=== PATIENT | female | born 1960 | race Caucasian/White ===

== ENCOUNTER 2019-06-23 15:53 | Inpatient (IN) | payer OTHER ==
[2019-06-23] MEDS ORDERED: SODIUM CHLORIDE 0.9% 500 ML 500 ML IV STA (16:21)
[2019-06-23] MEDS ORDERED: MECLIZINE 12.5 MG TAB PO STA (16:21)
[2019-06-23 16:39] LABS: Basophils % (A) 1 %; Eosinophils # (A) 0.1 k/uL (0-0.7); Eosinophils % (A) 2 %; HCT 45.3 % (34.0-46.0); HGB 15.4 gm/dL (11.4-16.0); Lymphocytes # (A) 1.2 k/uL (1.0-4.8); Lymphocytes % (A) 20 %; MCH 33.4 pg (25.0-35.0); MCHC 34.1 g/dL (31.0-37.0); MCV 98.2 fL (80.0-100.0); Mean Platelet Volume 7.4; Monocytes # (A) 0.4 k/uL (0-1.0); Monocytes % (A) 6 %; Neutrophils # (A) 4.3 k/uL (1.3-7.7); Neutrophils % (A) 70 %; Platelet Count 220 k/uL (150-450); RBC 4.61 m/uL (3.80-5.40); RDW 13.1 % (11.5-15.5); WBC 6.1 k/uL (3.8-10.6)
[2019-06-23 16:48] LABS: INR 0.9 (<1.2); Prothrombin Time 9.9 sec (9.0-12.0)
[2019-06-23 16:54] LABS: Albumin 4.9 g/dL (3.5-5.0); Calcium 10.3 mg/dL (8.4-10.2); Potassium 4.1 mmol/L (3.5-5.1); Total Bilirubin 0.5 mg/dL (0.2-1.3); Total Protein 8.2 g/dL (6.3-8.2)
[2019-06-23 17:06] LABS: Appearance,Urine Clear (Clear); Bilirubin,Urine Negative (Negative); Blood,Urine Negative (Negative); Color,Urine Light Yellow; Glucose,Urine (UA) Negative (Negative); Ketones,Urine Negative (Negative); Leukocyte Esterase,Urine Negative (Negative); Nitrite,Urine Negative (Negative); Protein,Urine Negative (Negative); Specific Gravity,Urine 1.002 (1.001-1.035); Urobilinogen,Urine <2.0 mg/dL (<2.0)
--- NOTE | 2019-06-23 17:59 | XR ---
EXAMINATION TYPE: XR chest 2V DATE OF EXAM: 06/23/2019 COMPARISON: NONE HISTORY: Chest heaviness and dizziness TECHNIQUE: Frontal and lateral views of the chest are obtained. FINDINGS: There is no focal air space opacity, pleural effusion, or pneumothorax seen. The cardiac silhouette size is mildly enlarged. The osseous structures are intact. IMPRESSION: Mildly enlarged cardiomediastinal silhouette otherwise no acute cardiopulmonary process.
[2019-06-23] MEDS ORDERED: TEMAZEPAM 15 MG CAP PO PRN (18:13)
[2019-06-23] MEDS ORDERED: NALOXONE 0.4 MG/ML 1 ML VIAL IV PRN (18:13)
[2019-06-23] MEDS ORDERED: MORPHINE SULFATE 4 MG/ML SYRINGE IV PRN (18:13)
[2019-06-23] MEDS ORDERED: traMADol 50 MG TAB PO PRN (18:13)
[2019-06-23] MEDS ORDERED: ONDANSETRON 4 MG/2 ML VIAL IVP PRN (18:13)
[2019-06-23] MEDS ORDERED: DOCUSATE 100 MG CAP PO PRN (18:13)
--- NOTE | 2019-06-23 18:13 | ED ---
General Adult HPI - General Chief complaint: Dizziness Stated complaint: Dizziness, Falling Time Seen by Provider: 06/23/19 16:13 Source: patient Mode of arrival: wheelchair Limitations: no limitations - History of Present Illness Initial comments: Patient complains of chest pain, lightheadedness, weakness. Nothing makes her symptoms better. Her symptoms are worse with exertion or walking around. It also makes her feel more short of breath. She has also had some vertigo. She had no loss of conscious. She has no diaphoresis. She has no focal weakness. Her chest pain and pressure have been getting worse off and on. She denies any palpitations. She has no pain or swelling in the arms or legs. - Related Data Allergies Allergy/AdvReac Type Severity Reaction Status Date / Time No Known Allergies Allergy Verified 06/23/19 15:56 Review of Systems ROS Statement: Those systems with pertinent positive or pertinent negative responses have been documented in the HPI. ROS Other: All systems not noted in ROS Statement are negative. Past Medical History Past Medical History: No Reported History Additional Past Medical History / Comment(s): carotid sclerosis, "mitral valve needs replacment supposed to be done 06/27 History of Any Multi-Drug Resistant Organisms: None Reported Past Surgical History: Tubal Ligation Past Psychological History: Anxiety, Depression Smoking Status: Current every day smoker Past Alcohol Use History: Occasional Past Drug Use History: None Reported General Exam Limitations: no limitations General appearance: alert, in no apparent distress Head exam: Present: atraumatic, normocephalic, normal inspection Eye exam: Present: normal appearance, PERRL, EOMI. Absent: scleral icterus, conjunctival injection, periorbital swelling ENT exam: Present: normal exam, mucous membranes moist Neck exam: Present: normal inspection. Absent: tenderness, meningismus, lymphadenopathy Respiratory exam: Present: normal lung sounds bilaterally. Absent: respiratory distress, wheezes, rales, rhonchi, stridor Cardiovascular Exam: Present: regular rate, normal rhythm, normal heart sounds. Absent: systolic murmur, diastolic murmur, rubs, gallop, clicks GI/Abdominal exam: Present: soft, normal bowel sounds. Absent: distended, tenderness, guarding, rebound, rigid Extremities exam: Present: normal inspection, full ROM, normal capillary refill. Absent: tenderness, pedal edema, joint swelling, calf tenderness Back exam: Present: normal inspection Neurological exam: Present: alert, oriented X3, CN II-XII intact Psychiatric exam: Present: normal affect, normal mood Skin exam: Present: warm, dry, intact, normal color. Absent: rash Course Vital Signs 06/23/19 06/23/19 06/23/19 15:57 16:26 16:30 Temperature 97.9 F Pulse Rate 99 90 89 Respiratory 18 20 18 Rate Blood Pressure 128/78 137/85 O2 Sat by Pulse 97 97 Oximetry 06/23/19 16:52 Temperature Pulse Rate Respiratory 20 Rate Blood Pressure O2 Sat by Pulse Oximetry EKG Findings - EKG Comments: EKG Findings:: Twelve-lead EKG shows ventricular rate 90 bpm, normal AL interval and QRS complex is, no ST elevation or depression, interpreted by me as normal sinus rhythm. Medical Decision Making - Medical Decision Making Patient complains of chest pain. EKG is normal. First troponin is negative. I will consult her american sign language interpreter. Patient will be admitted to the hospital. - Lab Data Result diagrams: 06/23/19 16:20 06/23/19 16:20 Lab Results 06/23/19 06/23/19 06/23/19 Range/Units 16:20 16:20 16:20 WBC 6.1 (3.8-10.6) k/uL RBC 4.61 (3.80-5.40) m/uL Hgb 15.4 (11.4-16.0) gm/dL Hct 45.3 (34.0-46.0) % MCV 98.2 (80.0-100.0) fL MCH 33.4 (25.0-35.0) pg MCHC 34.1 (31.0-37.0) g/dL RDW 13.1 (11.5-15.5) % Plt Count 220 (150-450) k/uL Neutrophils % 70 % Lymphocytes % 20 % Monocytes % 6 % Eosinophils % 2 % Basophils % 1 % Neutrophils # 4.3 (1.3-7.7) k/uL Lymphocytes # 1.2 (1.0-4.8) k/uL Monocytes # 0.4 (0-1.0) k/uL Eosinophils # 0.1 (0-0.7) k/uL Basophils # 0.0 (0-0.2) k/uL PT 9.9 (9.0-12.0) sec INR 0.9 (<1.2) Sodium (137-145) mmol/L Potassium (3.5-5.1) mmol/L Chloride (98-107) mmol/L Carbon Dioxide (22-30) mmol/L Anion Gap mmol/L BUN (7-17) mg/dL Creatinine (0.52-1.04) mg/dL Est GFR (CKD-EPI)AfAm (>60 ml/min/1.73 sqM) Est GFR (CKD-EPI)NonAf (>60 ml/min/1.73 sqM) Glucose (74-99) mg/dL Calcium (8.4-10.2) mg/dL Total Bilirubin (0.2-1.3) mg/dL AST (14-36) U/L ALT (9-52) U/L Alkaline Phosphatase (38-126) U/L Troponin I 0.018 (0.000-0.034) ng/mL Total Protein (6.3-8.2) g/dL Albumin (3.5-5.0) g/dL Urine Color Urine Appearance (Clear) Urine pH (5.0-8.0) Ur Specific [place] (1.001-1.035) Urine Protein (Negative) Urine Glucose (UA) (Negative) Urine Ketones (Negative) Urine Blood (Negative) Urine Nitrite (Negative) Urine Bilirubin (Negative) Urine Urobilinogen (<2.0) mg/dL Ur Leukocyte Esterase (Negative) 06/23/19 06/23/19 Range/Units 16:20 17:00 WBC (3.8-10.6) k/uL RBC (3.80-5.40) m/uL Hgb (11.4-16.0) gm/dL Hct (34.0-46.0) % MCV (80.0-100.0) fL MCH (25.0-35.0) pg MCHC (31.0-37.0) g/dL RDW (11.5-15.5) % Plt Count (150-450) k/uL Neutrophils % % Lymphocytes % % Monocytes % % Eosinophils % % Basophils % % Neutrophils # (1.3-7.7) k/uL Lymphocytes # (1.0-4.8) k/uL Monocytes # (0-1.0) k/uL Eosinophils # (0-0.7) k/uL Basophils # (0-0.2) k/uL PT (9.0-12.0) sec INR (<1.2) Sodium 139 (137-145) mmol/L Potassium 4.1 (3.5-5.1) mmol/L Chloride 106 (98-107) mmol/L Carbon Dioxide 22 (22-30) mmol/L Anion Gap 11 mmol/L BUN 8 (7-17) mg/dL Creatinine 0.87 (0.52-1.04) mg/dL Est GFR (CKD-EPI)AfAm 86 (>60 ml/min/1.73 sqM) Est GFR (CKD-EPI)NonAf 74 (>60 ml/min/1.73 sqM) Glucose 117 H (74-99) mg/dL Calcium 10.3 H (8.4-10.2) mg/dL Total Bilirubin 0.5 (0.2-1.3) mg/dL AST 24 (14-36) U/L ALT 9 (9-52) U/L Alkaline Phosphatase 144 H (38-126) U/L Troponin I (0.000-0.034) ng/mL Total Protein 8.2 (6.3-8.2) g/dL Albumin 4.9 (3.5-5.0) g/dL Urine Color Light Yellow Urine Appearance Clear (Clear) Urine pH 5.0 (5.0-8.0) Ur Specific [place] 1.002 (1.001-1.035) Urine Protein Negative (Negative) Urine Glucose (UA) Negative (Negative) Urine Ketones Negative (Negative) Urine Blood Negative (Negative) Urine Nitrite Negative (Negative) Urine Bilirubin Negative (Negative) Urine Urobilinogen <2.0 (<2.0) mg/dL Ur Leukocyte Esterase Negative (Negative) Disposition Clinical Impression: Chest pain Disposition: ADMITTED IP TO THIS HOSP Condition: Fair Is patient prescribed a controlled substance at d/c from ED?: No Referrals: Patience Mejia FNPBC [Primary Care Provider] - 1-2 days
[2019-06-23 19:12] VITALS: RESP 18
[2019-06-23] MEDS ORDERED: BISACODYL 5 MG TABLET.DR PO PRN (20:54)
[2019-06-23] MEDS ORDERED: DIAZEPAM 5 MG TAB PO PRN (20:54)
[2019-06-23] MEDS: lamoTRIgine 100 MG TAB PO SCH (21:06)
[2019-06-23] MEDS: traZODone HCL 100 MG TAB PO SCH (21:06)
[2019-06-23] MEDS: QUEtiapine 400 MG TAB PO SCH (21:07)
[2019-06-23] MEDS: busPIRone HCl 5 MG TAB PO SCH (21:07)
[2019-06-24] MEDS ORDERED: HEPARIN SODIUM,PORCINE 5,000 UNIT/ML 1 ML VIAL IV PRN (00:11)
[2019-06-24] MEDS ORDERED: HEPARIN SODIUM,PORCINE 5,000 UNIT/ML 1 ML VIAL IV ONE (00:11)
[2019-06-24] MEDS ORDERED: ASPIRIN 81 MG PO STA (00:12)
[2019-06-24] MEDS ORDERED: CLOPIDOGREL 75 MG TAB PO STA (00:13)
[2019-06-24] MEDS ORDERED: HEPARIN SOD,PORK IN 0.45% NACL 25,000 UNIT in 0.45% NACL 1 250ML.BAG IV SCH (00:15)
--- NOTE | 2019-06-24 00:17 | P.HPIM ---
History of Present Illness H&P Date: 06/23/19 The patient is a 59 yo F with a PMH of mitral valve regurgitation and tobacco abuse who presented to the ED w/ c/o worsening chest discomfort. The patient notes that she has been following with Dr Rajput in the clinic for this discomfort and that she was scheduled to undergo a cardiac cath later this week. She notes that her pain however worsened, is exertional, intermittent, substernal, pressure-like, with associated SOB, nausea, and palpitations. The patient notes that her exercise tolerance also continued to decline and now she gets winded with only a few steps. She reports no pain at rest. She denied cough, fever, chill, dysuria, abdominal pain, dizziness, LE edema, or LE pain. She underwent an extensive evaluation in the ED w/ EKg showing NSR @ [address]-T wave changes noted. CXR revealed mild cardiomegaly with UA unremarkable. Laboratory evaluation revealed Troponin of 0.018, WBC 6.1, Hgb 15.4, plt 220, Na 139, K 4.1, BUN 8, Cr 0.87, and glucose 117. The patient is being admitted to the medicine service for unstable angina. Past Medical History Past Medical History: No Reported History Additional Past Medical History / Comment(s): carotid sclerosis, "mitral valve needs replacment and 2 possible cardiac stents supposed to be done 06/27. 5 weeks ago she broke 3 ribs. History of Any Multi-Drug Resistant Organisms: None Reported Past Surgical History: Tubal Ligation Past Anesthesia/Blood Transfusion Reactions: No Reported Reaction Past Psychological History: Anxiety, Depression, PTSD, Schizoaffective Disorder, Schizophrenia Smoking Status: Current every day smoker Past Alcohol Use History: Occasional Past Drug Use History: None Reported Medications and Allergies Home Medications Medication Instructions Recorded Confirmed Type Bisacodyl 5 mg PO DAILY PRN 06/23/19 06/23/19 History Citalopram Hydrobromide [CeleXA] 40 mg PO DAILY 06/23/19 06/23/19 History Diazepam [Valium] 10 mg PO TID PRN 06/23/19 06/23/19 History QUEtiapine [SEROquel] 400 mg PO HS 06/23/19 06/23/19 History buPROPion HCL [Wellbutrin XL] 300 mg PO DAILY 06/23/19 06/23/19 History busPIRone HCL 15 mg PO QID 06/23/19 06/23/19 History lamoTRIgine [LaMICtal] 100 mg PO BID 06/23/19 06/23/19 History traZODone HCL 200 mg PO HS 06/23/19 06/23/19 History Allergies Allergy/AdvReac Type Severity Reaction Status Date / Time No Known Allergies Allergy Verified 06/23/19 18:21 Physical Exam Vitals: Vital Signs Temp Pulse Pulse Resp BP BP Pulse Ox 06/23/19 20:00 18 06/23/19 18:50 97.8 F 81 18 152/96 98 06/23/19 18:30 80 16 136/88 97 06/23/19 18:03 20 06/23/19 18:00 81 18 134/92 97 06/23/19 17:30 82 16 139/87 97 06/23/19 17:03 20 06/23/19 17:00 92 20 132/87 98 06/23/19 16:52 20 06/23/19 16:30 89 18 137/85 97 06/23/19 16:26 90 20 06/23/19 15:57 97.9 F 99 18 128/78 97 Intake and Output 06/23/19 06/23/19 06/23/19 06:59 14:59 22:59 Other: Weight 65.771 kg General: non toxic, no distress, appears at stated age, normal weight Derm: no unusual rashes/lesions no unusual ecchymoses, warm, dry Head: atraumatic, normocephalic, symmetric Eyes: EOMI, no lid lag, anicteric sclera, pupils equal round reactive to light ENT: Nose and ears atraumatic, no thrush, no pharyngeal erythema Neck: No thyromegaly, no cervical lymphadenopathy, trachea midline, supple Mouth: no lip lesion, mucus membranes moist Cardiovascular: S1S2 reg, no murmur, positive posterior tibial pulse bilateral, no edema, capillary refill less than 2 seconds, no chest wall tenderness Lungs: CTA bilateral, no rhonchi, no rales , no accessory muscle use Abdominal: soft, nontender to palpation, no guarding, no appreciable organomegaly, normal bowel sounds Ext: no gross muscle atrophy, muscle strength 5 out of 5 in all 4 extremities grossly, no contractures, Neuro: CN II-XI grossly intact, light touch intact all 4 extremities, finger to nose within normal limits, Psych: Alert, oriented, appropriate affect Results CBC & Chem 7: 06/23/19 16:20 06/23/19 16:20 Labs: Abnormal Lab Results - Last 24 Hours (Table) 06/23/19 Range/Units 16:20 Glucose 117 H (74-99) mg/dL Calcium 10.3 H (8.4-10.2) mg/dL Alkaline Phosphatase 144 H (38-126) U/L Thrombosis Risk Factor Assmnt - Choose All That Apply Any of the Below Risk Factors Present?: Yes Each Factor Represents 1 point: Age 41-60 years Other Risk Factors: No Other congenital or acquired thrombophilia - If yes, enter type in comment: No Thrombosis Risk Factor Assessment Total Risk Factor Score: 1 Thrombosis Risk Factor Assessment Level: Low Risk Assessment and Plan Plan: Unstable angina -Will administer Aspirin and plavix -Anticoagulation with Heparin infusion -Cardiac monitoring -Trend troponin -Cardiology consult Elevated alkaline phosphatase -Monitor for now Depression, anxiety, schizoaffective disorder -C/w home meds DVT prophylaxis -Heparin infusion The patient is admitted with an anticipated less than 2 midnight stay for evaluation of unstable angina CODE STATUS: Full Code Discussed with: Patient Anticipated discharge date: 1-[address]: Home A total of 35 minutes was spent on the care of this complex patient more than 50% of the time was spent in counseling and care coordination.
[2019-06-24 00:43] LABS: Basophils % (A) 1 %; Eosinophils # (A) 0.1 k/uL (0-0.7); Eosinophils % (A) 2 %; HCT 41.7 % (34.0-46.0); HGB 13.9 gm/dL (11.4-16.0); Lymphocytes # (A) 0.8 k/uL (1.0-4.8); Lymphocytes % (A) 20 %; MCH 32.9 pg (25.0-35.0); MCHC 33.2 g/dL (31.0-37.0); Mean Platelet Volume 6.5; Monocytes # (A) 0.3 k/uL (0-1.0); Monocytes % (A) 6 %; Neutrophils # (A) 2.9 k/uL (1.3-7.7); Neutrophils % (A) 70 %; Platelet Count 213 k/uL (150-450); RBC 4.22 m/uL (3.80-5.40); RDW 13.3 % (11.5-15.5); WBC 4.1 k/uL (3.8-10.6)
[2019-06-24 00:50] LABS: INR 0.9 (<1.2); Partial Thromboplastin Time 24.6 sec (22.0-30.0); Prothrombin Time 9.7 sec (9.0-12.0)
--- NOTE | 2019-06-24 09:44 | P.CRDCN ---
History of Present Illness History of present illness: HISTORY OF PRESENTING ILLNESS This is a pleasant 59-year-old female past medical history significant for chronic nicotine dependence, psychiatric illness and valvular heart disease. She follows in the office with Dr. Rajput. She established with him May 2019 in [place] and is scheduled for [facility] and left heart catheterization 06/27. She underwent outpatient echocardiogram April 2019 revealing preserved LV systolic function with ejection fraction 55-60%, thickened mitral valve leaflets with moderate to severe mitral regurgitation, moderate to severe tricuspid regurgitation. We have been asked to see her in consultation for chest pain. She states for the previous 1 month intermittently she has been experiencing dizziness with activity described as the room is spinning. She has associated ataxia and frequently trips and runs into things in her home. Over the last few days she has had more frequent episodes and has also noticed a pressure in the mid-sternal region described as a brick pushing on her chest. She denies radiation to the arm, back, neck or jaw. She has some mild shortness of breath with activity but denies significant dyspnea. She is currently chest pain free and states the antivert given yesterday has resolved her dizziness. DIAGNOSTICS EKG reveals sinus mechanism with no acute ST changes. Chest xray negative for an acute process. Laboratory reviewed, CBC unremarkable, sodium 139, potassium 4.1, creatinine 0.87, cardiac enzymes negative x3. She takes no daily cardiac medications. REVIEW OF SYSTEMS At the time of my exam: CONSTITUTIONAL: Denies fever or chills. CARDIOVASCULAR: Denies chest pain, shortness of breath, orthopnea, PND or palpitations. RESPIRATORY: Denies cough. GASTROINTESTINAL: Denies abdominal pain, diarrhea, constipation, nausea or vomiting. MUSCULOSKELETAL: Denies myalgias. NEUROLOGIC: Denies numbness, tingling or weakness. ENDOCRINE: Denies fatigue, weight change, polydipsia or polyurina. GENITOURINARY: Denies burning, hematuria or urgency with micturation. HEMATOLOGIC: Denies history of anemia or bleeding. PHYSICAL EXAMINATION Blood pressure 126/79 heart rate 94 afebrile and maintaining oxygen saturation on room air. CONSTITUTIONAL: No apparent distress. HEENT: Head is normocephalic. Pupils are equal, round. Sclerae anicteric. Mucous membranes of the mouth are moist. No JVD. No carotid bruit. CHEST EXAMINATION: Course scattered rhonchi, no wheezes or rales.. No chest wall tenderness is noted on palpation or with deep breathing. HEART EXAMINATION: Regular rate and rhythm. S1, S2 heard. Systolic ejection murmur at the left sternal border, no gallops or rub. ABDOMEN: Soft, nontender. Positive bowel sounds. EXTREMITIES: 2+ peripheral pulses, no lower extremity edema and no calf tenderness. NEUROLOGIC EXAMINATION: Patient is awake, alert and oriented x3. ASSESSMENT Chest pain, atypical. An acute coronary event has been ruled out. Dizziness, symptoms suggestive of vertigo. Resolved with antivert. Ataxia Valvular heart disease, severe MR and TR. Scheduled out [facility] 06/27/2019 Chronic nicotine dependence PLAN An acute event has been ruled out. Discontinue heparin infusion. Symptoms are atypical to be related to cardiac etiology. Likely related to vertigo. Increase activity and ambulation in the halls. Assess for recurring dizziness or chest pain. Check d-dimer and lipid panel. If asymptomatic with activity she is clear for discharge from a cardiac perspective. PRN antivert to be given for home. Smoking cessation recommended. Thank you kindly for this consultation. Nurse Practitioner note has been reviewed, I agree with a documented findings and plan of care. Patient was seen and examined. Past Medical History Past Medical History: No Reported History Additional Past Medical History / Comment(s): carotid sclerosis, "mitral valve needs replacment and 2 possible cardiac stents supposed to be done 06/27. 5 weeks ago she broke 3 ribs. History of Any Multi-Drug Resistant Organisms: None Reported Past Surgical History: Tubal Ligation Past Anesthesia/Blood Transfusion Reactions: No Reported Reaction Past Psychological History: Anxiety, Depression, PTSD, Schizoaffective Disorder, Schizophrenia Smoking Status: Current every day smoker Past Alcohol Use History: Occasional Past Drug Use History: None Reported Medications and Allergies Home Medications Medication Instructions Recorded Confirmed Type Bisacodyl 5 mg PO DAILY PRN 06/23/19 06/23/19 History Citalopram Hydrobromide [CeleXA] 40 mg PO DAILY 06/23/19 06/23/19 History Diazepam [Valium] 10 mg PO TID PRN 06/23/19 06/23/19 History QUEtiapine [SEROquel] 400 mg PO HS 06/23/19 06/23/19 History buPROPion HCL [Wellbutrin XL] 300 mg PO DAILY 06/23/19 06/23/19 History busPIRone HCL 15 mg PO QID 06/23/19 06/23/19 History lamoTRIgine [LaMICtal] 100 mg PO BID 06/23/19 06/23/19 History traZODone HCL 200 mg PO HS 06/23/19 06/23/19 History Allergies Allergy/AdvReac Type Severity Reaction Status Date / Time No Known Allergies Allergy Verified 06/23/19 18:21 Physical Exam Vitals: Vital Signs Temp Pulse Pulse Resp BP BP BP 06/24/19 07:00 98.1 F 84 18 126/79 06/24/19 04:00 97.8 F 83 18 144/91 06/24/19 03:34 18 06/24/19 00:00 18 06/23/19 23:40 97.8 F 80 18 121/80 06/23/19 20:00 18 06/23/19 18:50 97.8 F 81 18 152/96 06/23/19 18:30 80 16 136/88 06/23/19 18:03 20 06/23/19 18:00 81 18 134/92 06/23/19 17:30 82 16 139/87 06/23/19 17:03 20 06/23/19 17:00 92 20 132/87 06/23/19 16:52 20 06/23/19 16:30 89 18 137/85 06/23/19 16:26 90 20 06/23/19 15:57 97.9 F 99 18 128/78 Pulse Ox 06/24/19 07:00 95 06/24/19 04:00 98 06/24/19 03:34 06/24/19 00:00 06/23/19 23:40 96 06/23/19 20:00 06/23/19 18:50 98 06/23/19 18:30 97 06/23/19 18:03 06/23/19 18:00 97 06/23/19 17:30 97 06/23/19 17:03 06/23/19 17:00 98 06/23/19 16:52 06/23/19 16:30 97 06/23/19 16:26 06/23/19 15:57 97 Intake and Output 06/23/19 06/24/19 06/24/19 22:59 06:59 14:59 Other: # Voids 1 Weight 65.771 kg Results 06/24/19 00:19 06/23/19 16:20 Cardiac Enzymes 06/23/19 06/23/19 06/23/19 Range/Units 16:20 16:20 22:22 AST 24 (14-36) U/L Troponin I 0.018 0.015 (0.000-0.034) ng/mL 06/24/19 Range/Units 04:13 AST (14-36) U/L Troponin I 0.019 (0.000-0.034) ng/mL Coagulation 06/23/19 06/24/19 06/24/19 Range/Units 16:20 00:19 06:45 PT 9.9 9.7 (9.0-12.0) sec APTT 24.6 28.8 (22.0-30.0) sec CBC 06/23/19 06/24/19 Range/Units 16:20 00:19 WBC 6.1 4.1 (3.8-10.6) k/uL RBC 4.61 4.22 (3.80-5.40) m/uL Hgb 15.4 13.9 (11.4-16.0) gm/dL Hct 45.3 41.7 (34.0-46.0) % Plt Count 220 213 (150-450) k/uL Comprehensive Metabolic Panel 06/23/19 Range/Units 16:20 Sodium 139 (137-145) mmol/L Potassium 4.1 (3.5-5.1) mmol/L Chloride 106 (98-107) mmol/L Carbon Dioxide 22 (22-30) mmol/L BUN 8 (7-17) mg/dL Creatinine 0.87 (0.52-1.04) mg/dL Glucose 117 H (74-99) mg/dL Calcium 10.3 H (8.4-10.2) mg/dL AST 24 (14-36) U/L ALT 9 (9-52) U/L Alkaline Phosphatase 144 H (38-126) U/L Total Protein 8.2 (6.3-8.2) g/dL Albumin 4.9 (3.5-5.0) g/dL Current Medications Generic Name Dose Route Start Last Admin Trade Name Freq PRN Reason Stop Dose Admin Bisacodyl 5 mg 06/23/19 20:54 Dulcolax PO DAILY PRN Constipation Bupropion HCl 300 mg 06/24/19 09:00 Wellbutrin Xl PO DAILY CARLY Buspirone HCl 15 mg 06/23/19 22:00 06/23/19 21:07 Buspar PO 15 mg QID CARLY Administration Diazepam 10 mg 06/23/19 20:54 Valium PO TID PRN Anxiety Docusate Sodium 100 mg 06/23/19 18:13 Colace PO BID PRN Constipation Heparin Sodium (Porcine) 0 unit 06/24/19 00:11 Heparin IV PER PROTOCOL PRN Low PTT Protocol Heparin Sodium/Sodium Chloride 250 mls @ 7.893 mls/hr 06/24/19 00:15 06/24/19 00:37 25,000 unit/ Sodium Chloride IV 12 units/kg/hr .Q24H CARLY 7.893 mls/hr Administration Protocol 12 UNITS/KG/HR Lamotrigine 100 mg 06/23/19 21:00 06/23/19 21:06 Lamictal PO 100 mg BID CARLY Administration Morphine Sulfate 4 mg 06/23/19 18:13 Morphine Sulfate (Inj) IV Q4HR PRN Severe Pain Naloxone HCl 0.2 mg 06/23/19 18:13 Narcan IV Q2M PRN Opioid Reversal Quetiapine Fumarate 400 mg 06/23/19 21:00 06/23/19 21:07 Seroquel PO 400 mg HS CARLY Administration Tramadol HCl 50 mg 06/23/19 18:13 06/23/19 20:43 Ultram PO 50 mg Q6H PRN Administration Moderate Pain Trazodone HCl 200 mg 06/23/19 21:00 06/23/19 21:06 Desyrel PO 200 mg HS CARLY Administration Intake and Output 06/23/19 06/24/19 06/24/19 22:59 06:59 14:59 Other: # Voids 1 Weight 65.771 kg 06/24/19 00:19 06/23/19 16:20
[2019-06-24 09:53] LABS: Cholesterol 239 mg/dL (<200); HDL Cholesterol 64 mg/dL (40-60); LDL Cholesterol,Calculated 149 mg/dL (0-99); Triglycerides 131 mg/dL (<150)
[2019-06-24] MEDS ORDERED: MECLIZINE 25 MG TAB PO STA (10:00)
[2019-06-24] MEDS: lamoTRIgine 100 MG TAB PO SCH ×2 (10:07→22:17)
[2019-06-24] MEDS: busPIRone HCl 5 MG TAB PO SCH ×4 (10:08→22:17)
[2019-06-24 11:19] VITALS: BMI 24.9
[2019-06-24] MEDS: buPROPion XL 300 MG TAB.ER.24H PO SCH (12:52)
[2019-06-24] MEDS ORDERED: SODIUM CHLORIDE 0.9% 1,000 ML in EMPTY BAG 1 BAG IV ONE (13:31)
[2019-06-24] MEDS ORDERED: NITROGLYCERIN SL TABS 0.4 MG TAB SUBLINGUAL PRN (13:31)
[2019-06-24] MEDS ORDERED: DIAZEPAM 2 MG TAB PO PRN (14:40)
--- NOTE | 2019-06-24 18:23 | P.PN ---
Subjective Progress Note Date: 06/24/19 (delayed charting see at 1430) Principal diagnosis: chest pain Patient is a 59-year-old female past medical history of mitral valve regurgitation, tobacco abuse, anxiety, and carotid stenosis who presented to the emergency department with complaints of worsening chest pain. She was subsequently admitted for cardiac observation. Troponins remain negative, EKG did not show any signs of acute ischemia. She was seen by cardiology to undergo cardiac catheterization 06/25. She was also complaining of some dizziness. Patient seen and examined at bedside. She is not currently having any chest pain or shortness of breath. She states that she always develops chest pain and shortness of breath when up and ambulating. She also reports an off-balance sensation when up and ambulating. She states as though she has blurry vision and feels faint and like she might pass out. She states the room is not spinning. She does report that she has bumped into things and had several falls. She states that she has no dizziness or room spinning feelings when she is sitting or even when she is moving her head but she does have these whenever she ambulates. She does report that approximately 4 weeks ago her Klonopin was stopped and she was started on Valium. She states her dizziness has been a chronic problem and is not changing. Patient is very lethargic after having received 10 mg of Valium approximately an hour before my assessment. She cannot stay awake during our conversation. We discussed that she is multiple medications which could result in dizziness. It appears this has been long-standing. Objective - Vital Signs Vital signs: Vital Signs Temp 98.0 F 06/24/19 15:34 Pulse 85 06/24/19 16:00 Resp 18 06/24/19 16:00 BP 135/80 06/24/19 15:34 Pulse Ox 96 06/24/19 15:34 Intake & Output 06/23/19 06/24/19 06/24/19 18:59 06:59 18:59 Intake Total 320 Balance 320 Weight 65.771 kg 65.771 kg Intake: Oral 120 Other 200 Other: Voiding Method Toilet # Voids 1 - Exam General: non toxic, no distress, appears at stated age Derm: warm, dry Head: atraumatic, normocephalic, symmetric Eyes: EOMI, no lid lag, anicteric sclera Mouth: no lip lesion, mucus membranes moist Cardiovascular: S1S2 reg, no murmur, positive posterior tibial pulse bilateral, Lungs: CTA bilateral, no rhonchi, no rales , no accessory muscle use Abdominal: soft, nontender to palpation, no guarding, no appreciable organomegaly Ext: no gross muscle atrophy, no edema, no contractures Neuro: CN II-XI grossly intact, no focal neuro deficits Psych: Alert, lethargic has a hard time staying awake, history of a rub multiple times to stay awake. - Labs CBC & Chem 7: 06/24/19 00:19 06/23/19 16:20 Labs: Abnormal Lab Results - Last 24 Hours (Table) 06/24/19 06/24/19 Range/Units 00:19 06:45 Lymphocytes # 0.8 L (1.0-4.8) k/uL Cholesterol 239 H (<200) mg/dL LDL Cholesterol, Calc 149 H (0-99) mg/dL HDL Cholesterol 64 H (40-60) mg/dL Assessment and Plan Assessment: Atypical chest pain -Troponins negative -Aspirin, statin -Plans for cardiac cath in a.m. -Heparin drip -Beta jad Dyslipidemia -Statin Dizziness -Suspect secondary to polypharmacy. Will decrease Valium to 2 mg 3 times a day as patient has been on this for approximately 4 months -Have asked patient to follow up with her psychiatrist. Denies medication regimen -Check head CT -Further outpatient evaluation Schizoaffective disorder -Continue with psychiatric therapy at [facility] and Atarax -Patient is currently taking trazodone, Seroquel, BuSpar, Wellbutrin, and Celexa. Also taking Valium in addition. DVT prophylaxis: heparin gtt Discussed with: patient, nursing Anticipated discharge: in AM Anticipated discharge place: home A total of 35 minutes was spent on the care of this complex patient more than 50% of the time was spent in counseling and care coordination.
--- NOTE | 2019-06-24 19:38 | CT ---
EXAMINATION TYPE: CT brain wo con DATE OF EXAM: 06/24/2019 COMPARISON: None HISTORY: dizziness CT DLP: 1091.4 mGycm Automated exposure control for dose reduction was used. There is mild cerebral atrophy. There is no mass effect nor midline shift. There is no sign of intrac ranial hemorrhage. The calvarium is intact. Skull base is intact. Impression new mild atrophy. No acute intracranial abnormality.
[2019-06-24] MEDS ORDERED: ATORVASTATIN 40 MG TAB PO SCH (21:00)
[2019-06-24] MEDS: traZODone HCL 100 MG TAB PO SCH (22:17)
[2019-06-24] MEDS: QUEtiapine 400 MG TAB PO SCH (22:18)
[2019-06-25] MEDS: busPIRone HCl 5 MG TAB PO SCH ×2 (05:25→12:27)
[2019-06-25] MEDS: lamoTRIgine 100 MG TAB PO SCH (05:25)
[2019-06-25] MEDS ORDERED: ASPIRIN 325 MG TAB PO ONE (06:00)
[2019-06-25 06:47] LABS: Basophils % (A) 1 %; Eosinophils # (A) 0.1 k/uL (0-0.7); Eosinophils % (A) 2 %; HCT 43.9 % (34.0-46.0); HGB 14.4 gm/dL (11.4-16.0); Lymphocytes % (A) 21 %; MCHC 32.8 g/dL (31.0-37.0); MCV 100.5 fL (80.0-100.0); Mean Platelet Volume 7.2; Monocytes # (A) 0.3 k/uL (0-1.0); Monocytes % (A) 6 %; Neutrophils # (A) 3.2 k/uL (1.3-7.7); Neutrophils % (A) 69 %; Platelet Count 211 k/uL (150-450); RBC 4.37 m/uL (3.80-5.40); RDW 13.2 % (11.5-15.5); WBC 4.6 k/uL (3.8-10.6)
[2019-06-25 07:23] LABS: Calcium 9.3 mg/dL (8.4-10.2); Potassium 4.1 mmol/L (3.5-5.1)
--- NOTE | 2019-06-25 07:52 | P.PN ---
Subjective Progress Note Date: 06/25/19 Principal diagnosis: Mitral regurgitation This is a pleasant 59-year-old female patient was transferred from [facility] further evaluation of chest pain and shortness of breath and she was seen as an outpatient weeks ago for further evaluation of mitral regurgitation and she was scheduled as an outpatient to undergo a BRADLY and heart catheterization. She was seen this morning. She continues to have shortness of breath with exertion and sometimes chest discomfort. The plan is to proceed with a BRADLY and heart catheterization on the patient later on today. The blood pressure is slightly elevated. Otherwise a cardiac enzymes are unremarkable. Objective - Vital Signs Vital signs: Vital Signs Temp 97.5 F L 06/25/19 07:05 Pulse 82 06/25/19 07:05 Resp 18 06/25/19 07:05 BP 145/86 06/25/19 07:05 Pulse Ox 97 06/25/19 07:05 Intake & Output 06/24/19 06/25/19 06/25/19 18:59 06:59 18:59 Intake Total 320 Balance 320 Weight 65.771 kg Intake: Oral 120 Other 200 Other: Voiding Method Toilet Toilet - Constitutional General appearance: Present: no acute distress - Respiratory Respiratory: bilateral: CTA - Cardiovascular Rhythm: regular Heart sounds: normal: S1, S2 Abnormal Heart Sounds: Present: systolic murmur - Labs CBC & Chem 7: 06/25/19 06:37 06/25/19 06:37 Labs: Abnormal Lab Results - Last 24 Hours (Table) 06/24/19 06/25/19 06/25/19 Range/Units 06:45 06:37 06:37 MCV 100.5 H (80.0-100.0) fL Chloride 114 H (98-107) mmol/L Cholesterol 239 H (<200) mg/dL LDL Cholesterol, Calc 149 H (0-99) mg/dL HDL Cholesterol 64 H (40-60) mg/dL Assessment and Plan Assessment: Assessment Moderate to severe mitral regurgitation Shortness of breath probably secondary to MR Significant history of smoking Plan Proceed with a BRADLY and cath Follow-up with the patient
[2019-06-25] MEDS: buPROPion XL 300 MG TAB.ER.24H PO SCH (08:27)
[2019-06-25] MEDS ORDERED: LOSARTAN 25 MG TAB PO SCH (09:00)
[2019-06-25] MEDS ORDERED: IV FLUID CONTINUATION 250 ML IV ONE (09:42)
[2019-06-25] MEDS ORDERED: VERAPAMIL 2.5 MG/ML 2 ML AMP ONE (09:47)
[2019-06-25] MEDS ORDERED: LIDOCAINE 1% INJ 10MG/ML (20 ML MDV) ONE (09:47)
[2019-06-25] MEDS ORDERED: HEPARIN SODIUM 1,000 UN/ML (10ML VL) ONE (09:47)
[2019-06-25] MEDS ORDERED: MIDAZOLAM 2 MG/2 ML VIAL IV ONE ×3 (10:00→11:01)
[2019-06-25] MEDS ORDERED: LIDOCAINE 1% INJ 10MG/ML (20 ML MDV) SQ ONE (10:01)
[2019-06-25] MEDS ORDERED: VERAPAMIL SYRINGE (5 MG/10 ML) INTRAARTER ONE (10:02)
[2019-06-25] MEDS ORDERED: HEPARIN SODIUM 1,000 UN/ML (10ML VL) IV ONE (10:03)
[2019-06-25] MEDS ORDERED: ENALAPRILAT 1.25 MG/ML 1 ML VIAL ONE (10:08)
[2019-06-25] MEDS ORDERED: hydrALAZINE HCL 20 MG/ML 1 ML VIAL ONE (10:08)
[2019-06-25] MEDS ORDERED: ENALAPRILAT 1.25 MG/ML 1 ML VIAL IV ONE (10:09)
[2019-06-25] MEDS ORDERED: hydrALAZINE HCL 20 MG/ML 1 ML VIAL IV ONE (10:09)
[2019-06-25] MEDS ORDERED: FUROSEMIDE 10 MG/ML 4 ML VIAL ONE (10:15)
[2019-06-25] MEDS ORDERED: FUROSEMIDE 10 MG/ML 4 ML VIAL IV ONE (10:18)
[2019-06-25] MEDS ORDERED: IOPAMIDOL-370 125ML BTL INJ ONE (10:22)
[2019-06-25] MEDS ORDERED: RX INFO: IV CONTRAST WAS GIVEN 1 EACH MISC MISCELLANE PRN (10:27)
[2019-06-25] MEDS ORDERED: SODIUM CHLORIDE 0.9% 1,000 ML IV SCH (10:30)
[2019-06-25] MEDS ORDERED: fentaNYL (PF) 50 MCG/ML 2 ML AMP ONE (10:39)
[2019-06-25] MEDS ORDERED: IV FLUID CONTINUATION 500 ML IV ONE (10:43)
--- NOTE | 2019-06-25 10:48 | ECHOT ---
TRANSESOPHAGEAL ECHOCARDIOGRAM DR STATES TO DISREGARD THE WHOLE DICTATION: JULIO C / JUANI: [id number] /
--- NOTE | 2019-06-25 10:51 | CC ---
CARDIAC CATHETERIZATION REPORT DATE OF SERVICE: June 25, 2019 PERFORMING PHYSICIAN: Fadi Rajput MD. PROCEDURE PERFORMED: 1. Selective right and left coronary angiogram. 2. Left heart catheterization. 3. Left ventriculography. INDICATION: This is a 59-year-old female patient who was diagnosed recently with symptomatic mitral regurgitation. On transthoracic echocardiogram, the MR was in the moderate to severe range. She was scheduled as an outpatient to undergo a BRADLY and heart catheterization, but she was admitted to the hospital with chest discomfort. Because of that, we decided to get the procedure done today. APPROACH: Right radial artery. COMPLICATION: None. LEVEL OF SEDATION: Moderate with sedation length of 26 minutes. PROCEDURE DESCRIPTION: After obtaining an informed consent, the patient was brought to the cardiac laboratory coordinator. The right radial artery was cannulated using micropuncture technique, the micropuncture wire passed easily then I placed a 5-Mosotho sheath. I did after that give the patient 2 mg of verapamil IA and 6000 units of heparin IV. Selective right and left coronary angiogram performed using 5-Mosotho JR3.5 and JL3 catheters. Left heart catheterization was performed using 5-Mosotho pigtail catheter. Left ventriculography was performed using the 5-Mosotho pigtail catheter. The procedure was completed without any complication. SELECTIVE CORONARY ANGIOGRAM: 1. The right coronary artery is a large caliber vessel. It is a dominant vessel and appeared to have mild disease only in the midportion. Distally, it bifurcates into PDA and PLV branches both appeared to be angiographically normal. 2. The left main is a short left main but angiographically normal. It bifurcates into LCX and LAD. 3. The LCX is a large caliber vessel and appeared to have mild disease only. 4. The LAD: The proximal LAD appeared to have mild disease only. The mid LAD appeared to be normal and the LAD distally appeared to be normal as well. The LAD gives rise into the first and second diagonal branches both appeared to be angiographically normal. HEMODYNAMICS: The LVEDP was 16 to 18 mmHg without significant gradient across the aortic valve. LEFT VENTRICULOGRAPHY: Left ventriculography was performed in the QUIROZ projection and using a power injection. The left ventricular systolic function appeared to be normal with EF around 60% to 65% with evidence of 3+ mitral regurgitation seen. CONCLUSION: 1. Mild nonobstructive coronary artery disease. 2. Normal left ventricular end-diastolic pressure. 3. Normal left ventricular systolic function. 4. A 3+ mitral regurgitation. 5. Dilated left atrium. POSTPROCEDURE MANAGEMENT: The patient is going to undergo a transesophageal echocardiogram. JULIO C / JUANI: [id number] /
[2019-06-25] MEDS ORDERED: BENZOCAINE SPRAY 1 CAN MUCOUS MEM ONE (10:55)
[2019-06-25] MEDS: fentaNYL (PF) 50 MCG/ML 2 ML AMP IV ONE ×2 (10:57→11:01)
[2019-06-25] MEDS ORDERED: HYDROCHLOROTHIAZIDE 25 MG TAB PO SCH (11:15)
[2019-06-25] MEDS ORDERED: LOSARTAN 25 MG TAB PO ONE (11:16)
--- NOTE | 2019-06-25 11:27 | ECHOT ---
TRANSESOPHAGEAL ECHOCARDIOGRAM DATE OF SERVICE: 06/25/2019 PERFORMING PHYSICIAN: Fadi Rajput MD. PROCEDURE PERFORMED: Transesophageal echocardiogram. INDICATION: Evaluating mitral regurgitation. COMPLICATION: None. LEVEL OF SEDATION: Moderate with sedation length of 12 minutes. PROCEDURE DESCRIPTION: After obtaining an informed consent, explaining the procedure, benefits, risks, complications and alternatives, the patient was brought to the transesophageal echocardiogram suite. A pulse oximetry and heart rate monitors were attached to the patient prior to the procedure. The patient's throat was sprayed using lidocaine locally. Following that, the patient was turned into left lateral position. A bite guard was placed and the patient was then sedated with the above doses of Versed and fentanyl in divided doses. Following that, the transesophageal echocardiogram probe was advanced through the bite guard into the mid esophagus where 2-D echocardiogram images as well as color Doppler images of various cardiac structures were obtained. We evaluated the interatrial septum using 2-D echocardiogram, color Doppler, and contrast study. The procedure was completed. There were no complications. FINDINGS: The left ventricular dimension and systolic function appeared to be within normal limits. The ejection fraction appeared to be in the range of 55% to 60%. The right ventricle appeared to be within normal limits for dimension. The left atrial appendage appeared to be free from any thrombus. The interatrial septum appeared to be intact without any evidence of shunt. The aortic valve is trileaflet valve without stenosis or regurgitation. The mitral valve was well seen and evaluated using color-flow Doppler, continuous-wave Doppler, as well as pulse-wave Doppler. The anterior mitral leaflet a thick and myxomatous and prolapsing with evidence of only moderate mitral regurgitation. The tricuspid valve and pulmonic valve appeared to be within normal limits. CONCLUSION: 1. Normal left ventricular dimension and systolic function. 2. Normal right ventricular dimension and systolic function. 3. Mild left atrial dilatation. 4. Normal left atrial appendage without any evidence of thrombus. 5. Intact interatrial septum without shunt. 6. Myomatous anterior mitral leaflet with evidence of anterior mitral leaflet prolapsing and moderate mitral regurgitation only. 7. Normal aortic valve and trileaflet aortic valve without stenosis or regurgitation. 8. Normal tricuspid valve and pulmonic valve. 9. No evidence of pericardial effusion. 10.Normal aortic root dimension. MMODL / IJN: [id number] /
[2019-06-25] MEDS ORDERED: LOSARTAN-HCTZ 50-12.5 MG 1 EACH TAB PO SCH (11:30)
--- NOTE | 2019-06-25 15:33 | P.DS ---
Providers Date of admission: 06/25/19 10:29 Expected date of discharge: 06/25/19 Attending physician: Kristi Forde DO Consults: 06/23/19 18:14 Consult Physician Routine Consulting Provider: Fadi Rajput Consult Reason/Comments: chest pain Do you want consulting provider notified?: Yes Primary care physician: Patience Mejia, [facility] Hospital Course: 59 yo F with a PMH of mitral valve regurgitation and tobacco abuse who presented to the ED w/ c/o worsening chest discomfort. The patient notes that she has been following with Dr Rajput in the clinic for this discomfort and that she was scheduled to undergo a cardiac cath later this week. She notes that her pain however worsened, is exertional, intermittent, substernal, pressure-like, with associated SOB, nausea, and palpitations. The patient notes that her exercise tolerance also continued to decline and now she gets winded with only a few steps. She reports no pain at rest. She denied cough, fever, chill, dysuria, abdominal pain, dizziness, LE edema, or LE pain. She underwent an extensive evaluation in the ED w/ EKg showing NSR @ [address]-T wave changes noted. CXR revealed mild cardiomegaly with UA unremarkable. Laboratory evaluation revealed Troponin of 0.018, WBC 6.1, Hgb 15.4, plt 220, Na 139, K 4.1, BUN 8, Cr 0.87, and glucose 117. She also had a head CT scan that was negative. The patient was admitted to the medicine service for unstable angina. Patient was admitted to the hospital, she was placed on telemetry. She was initially treated with heparin drip. Troponin was cycled and that remained negative. Heparin drip was discontinued. She was seen by cardiology. Today she underwent heart catheterization as well as BRADLY by cardiology which found clean coronaries, moderate to severe mitral regurgitation with mitral wall prolapse. No further recommendations were provided by cardiology. Patient will be discharged home in a stable condition. Patient Condition at Discharge: Fair Plan - Discharge Summary Discharge Rx Participant: No New Discharge Prescriptions: New Losartan-Hctz 50-12.5 mg [Hyzaar 50-12.5] 1 each PO BID #180 tab Atorvastatin [Lipitor] 40 mg PO HS #90 tab Continue Diazepam [Valium] 10 mg PO TID PRN PRN Reason: Anxiety traZODone HCL 200 mg PO HS buPROPion HCL [Wellbutrin XL] 300 mg PO DAILY Citalopram Hydrobromide [CeleXA] 40 mg PO DAILY lamoTRIgine [LaMICtal] 100 mg PO BID busPIRone HCL 15 mg PO QID QUEtiapine [SEROquel] 400 mg PO HS Bisacodyl 5 mg PO DAILY PRN PRN Reason: Constipation Discharge Medication List Bisacodyl 5 mg PO DAILY PRN 06/23/19 [History] Citalopram Hydrobromide [CeleXA] 40 mg PO DAILY 06/23/19 [History] Diazepam [Valium] 10 mg PO TID PRN 06/23/19 [History] QUEtiapine [SEROquel] 400 mg PO HS 06/23/19 [History] buPROPion HCL [Wellbutrin XL] 300 mg PO DAILY 06/23/19 [History] busPIRone HCL 15 mg PO QID 06/23/19 [History] lamoTRIgine [LaMICtal] 100 mg PO BID 06/23/19 [History] traZODone HCL 200 mg PO HS 06/23/19 [History] Atorvastatin [Lipitor] 40 mg PO HS #90 tab 06/25/19 [Rx] Losartan-Hctz 50-12.5 mg [Hyzaar 50-12.5] 1 each PO BID #180 tab 06/25/19 [Rx] Follow up Appointment(s)/Referral(s): Patience Mejia FNPBC [Primary Care Provider] - 1-2 days Fadi Rajput MD [STAFF PHYSICIAN] - 06/27/19 2:15 pm ([facility])
[2019-06-25 15:56] VITALS: BP 124/82; PULSE 86; TEMP 97.4
[2019-06-26] MEDS ORDERED: LOSARTAN 50 MG TAB PO SCH (09:00)
== END 2019-06-25 17:30 | disposition home or self-care (01) | DRG 287 ==
LOC: EC 15:53 → 1SOBS 18:13 → OBSVTOIN 06-25 10:29
PROVIDERS: ADMIT Internal Medicine; ATTEND Internal Medicine
PROC: 4A023N7 Measurement of Cardiac Sampling and Pressure, Left Heart, Percutaneous Approach (ICD-10-PCS; principal; 2019-06-25 08:35)
PROC: B2151ZZ Fluoroscopy of Left Heart using Low Osmolar Contrast (ICD-10-PCS; principal; 2019-06-25 08:35)
PROC: B2111ZZ Fluoroscopy of Multiple Coronary Arteries using Low Osmolar Contrast (ICD-10-PCS; principal; 2019-06-25 08:35)
PROC: B246ZZ4 Ultrasonography of Right and Left Heart, Transesophageal (ICD-10-PCS; principal; 2019-06-25 08:35)
DX: I25.110 Atherosclerotic heart disease of native coronary artery with unstable angina pectoris (principal); E78.5 Hyperlipidemia, unspecified; F17.200 Nicotine dependence, unspecified, uncomplicated; F25.9 Schizoaffective disorder, unspecified; F32.9 Major depressive disorder, single episode, unspecified; F43.10 Post-traumatic stress disorder, unspecified; I08.1 Rheumatic disorders of both mitral and tricuspid valves; R29.6 Repeated falls; Z79.899 Other long term (current) drug therapy
CPT/HCPCS: 36415; 70450; 71046; 80048; 80053; 80061; 81003; 84484; 85025; 85379; 85610; 85730; 93005; 93312; 93320; 93325; 93458; 96360; 99285